=== PATIENT | female | born 1955 | race Caucasian/White ===

== ENCOUNTER → 2018-03-02 | Outpatient (CLI) | payer SELFPAY ==
[2018-03-02] MEDS: IOHEXOL 300 MG/ML 100ML VIAL. IV (11:13)
== END | disposition home or self-care (01) ==
LOC: KCIC CT 10:18
DX: I51.7 Cardiomegaly (principal); R05 Cough; R06.02 Shortness of breath; R91.8 Other nonspecific abnormal finding of lung field
CPT/HCPCS: 71260; Q9967